=== PATIENT | male | born 1995 | race Two or more races ===

== ENCOUNTER 2020-10-16 18:01 | Emergency (ER) | payer SELFPAY ==
[~2020-10-16] VITALS: Ht 162.6 cm; Wt 63.5 kg
[2020-10-16 18:15] VITALS: BP 122/77
--- NOTE | 2020-10-16 18:15 | NUR ---
ED Nurse Note: Pt walked in to ED c/olaceration on right middle finger. Per pt, he accidentally cut with finger with a tree thinner then fell. Pressure applied with no active bleeding. AAOx4, no SOB. Denies LOC/ KO. ERPA at bedside.
[2020-10-16] MEDS ORDERED: Lidocaine 1% Plain 30 ml INJ ONE (18:30)
--- NOTE | 2020-10-16 18:38 | Diagnostic Imaging Report ---
EXAM: XR Chest, 1 View CLINICAL HISTORY: PAIN TECHNIQUE: Frontal view of the chest. COMPARISON: No relevant prior studies available. FINDINGS: Lungs: No acute cardiopulmonary disease. Pleural space: Unremarkable. No pneumothorax. Heart: Cardiac silhouette is somewhat globoid in appearance, which could be incidental but which could represent possible structural cardiac anomaly. Mediastinum: Unremarkable. Bones/joints: No acute abnormality IMPRESSION: 1. No acute cardiopulmonary disease. 2. Cardiac silhouette is somewhat globoid in appearance, which could be incidental but which could represent possible structural cardiac anomaly. 3. Recommend echocardiogram to further evaluate cardiac chambers.
--- NOTE | 2020-10-16 18:39 | Diagnostic Imaging Report ---
EXAM: XR Right Hand Complete, 3 or More Views CLINICAL HISTORY: PAIN TECHNIQUE: Frontal, lateral and oblique views of the right hand. COMPARISON: No relevant prior studies available. FINDINGS: Bones/joints: Splint and bandage around third middle and distal phalanges. No acute traumatic osseous injury definitively seen. Remaining bones and soft tissues unremarkable. No dislocation. Soft tissues: Extensive third digit soft tissue irregularity likely represents laceration. IMPRESSION: 1. Splint and bandage around third middle and distal phalanges. 2. Extensive third digit soft tissue irregularity likely represents laceration. 3. No acute traumatic osseous injury definitively seen.
[2020-10-16] MEDS ORDERED: Morphine Sulfate 2mg/ml Inj(IV/IM USE ONLY) IVP ONE (18:45)
[2020-10-16] MEDS ORDERED: Piperacillin/Tazobactam 3.375 GM in NS 110 ML IVPB ONE (18:45)
--- NOTE | 2020-10-16 19:10 | NUR ---
HAND-OFF: Report given to Aaliyah ARAGON.
--- NOTE | 2020-10-16 19:11 | NUR ---
ED Nurse Note: pt found laying in bed with eyes open, AAOx4.
--- NOTE | 2020-10-16 19:40 | NUR ---
ED Nurse Note: PA at bedside resassessing wound
[2020-10-16] MEDS ORDERED: Tetanus/Diptheria/Pertussis IM ONE (20:45)
--- NOTE | 2020-10-16 20:47 | Emergency Room Report ---
History of Present Illness General Chief Complaint: Laceration Source: Patient Present Illness HPI 25-year-old male with no no signal past medical history brought in by family due to a laceration to right index finger. Patient was coming down a ladder and missed a step and a branch cut his finger. Denies any head injury. Complains of chest pressure and right hand pain. Patient is a Martiniquais speaking. Reports that he smoked marijuana prior to arrival. Avulsion laceration noted right index finger. Patient has range of motion, and is neurovascularly intact and has full strength of upper extremities. Is not up-to-date with tetanus shot. Denies fever and chills. Allergies: Coded Allergies: No Known Allergies (Unverified , 10/16/20) COVID-19 Screening Contact w/high risk pt: No Experienced COVID-19 symptoms?: No COVID-19 Testing performed WIRE INSULATOR: No Patient History Past Medical History: see triage record Past Surgical History: none Pertinent Family History: none Social History: Reports: drug use - Marijuana Immunizations: other - Tdap today Reviewed Nursing Documentation: PMH: Agreed; PSxH: Agreed Nursing Documentation-PMH Past Medical History: No Stated History Review of Systems All Other Systems: negative except mentioned in HPI Physical Exam Vital Signs Date Time Temp Pulse Resp B/P (MAP) Pulse Ox O2 Delivery O2 Flow Rate FiO2 10/16/20 18:10 97.9 62 16 122/77 (92) 99 Room Air Sp02 EP Interpretation: reviewed, normal General Appearance: no apparent distress, alert, GCS 15, non-toxic Head: normocephalic, atraumatic Eyes: bilateral eye normal inspection, bilateral eye PERRL ENT: hearing grossly normal, normal pharynx, no angioedema, normal voice Neck: full range of motion, supple/symm/no masses Respiratory: chest non-tender, lungs clear, normal breath sounds, speaking full sentences Cardiovascular #1: regular rate, rhythm, no edema Cardiovascular #2: 2+ carotid (R), 2+ carotid (L), 2+ radial (R), 2+ radial (L), 2+ dorsalis pedis (R), 2+ dorsalis pedis (L) Gastrointestinal: normal bowel sounds, non tender, soft, non-distended, no guarding, no rebound Rectal: deferred Musculoskeletal: back normal, other - Patient is neurovascularly intact and has full strength Neurologic: alert, motor strength/tone normal, oriented x3, sensory intact, responsive, speech normal Psychiatric: judgement/insight normal, memory normal, mood/affect normal, no suicidal/homicidal ideation Skin: laceration - Avulsion laceration right index finger, bone is visible however no fracture noted Lymphatic: no adenopathy Procedures Laceration/Wound Repair Laceration/Wound Repair : Consent: Verbal Wound Location: upper extremity - Right index finger Wound's Depth, Shape: superficial Wound Length (cm): 2 Wound Explored: contaminated Betadine Prep?: Yes Wound Repaired With: Dermabond Sterile Dressing Applied?: Yes Splint Applied?: Yes Type of Splint Applied: metal Patient Tolerated: Well Complications: None Medical Decision Making PA Attestation ALL Diagnosis and treatment plan reviewed and discussed with my supervising physician Dr. Choudhary Diagnostic Impression: Primary Impression: Thumb laceration ER Course 25-year-old male with no no signal past medical history brought in by family due to a laceration to right index finger. Patient was coming down a ladder and missed a step and a branch cut his finger. Denies any head injury. Complains of chest pressure and right hand pain. Patient is a Martiniquais speaking. Reports that he smoked marijuana prior to arrival. Avulsion laceration noted right index finger. Patient has range of motion, and is neurovascularly intact and has full strength of upper extremities. Is not up-to-date with tetanus shot. Denies fever and chills. Ddx considered but are not limited to : Superficial laceration, deep laceration, tendon involvement with laceration, laceration with foreign body Vital signs: are WNL, pt. is afebrile H&PE are most consistent with: Thumb avulsion laceration ORDERS: Hand x-ray, chest x-ray, clindamycin, Tylenol 3, ibuprofen ED INTERVENTIONS: Morphine, Zosyn, Dermabond applied, wound cleaned and dressed DISCHARGE: At this time pt. is stable for d/c to home. Will provide printed patient care instructions, and any necessary prescriptions. Care plan and follow up instructions have been discussed with the patient prior to discharge. Couple hand plastic surgeons were contacted however were unable to come, I applied Dermabond was bandaged properly and metal splint applied follow-up with hand specialist. If worsening symptoms return to emergency room. Patient. Chest X-Ray Diagnostic Results Chest X-Ray Diagnostic Results : Chest X-Ray Ordered: Yes # of Views/Limited/Complete: 1 View Indication: Chest Pain EP Interpretation: Yes PA Xray: Interpretation reviewed, by supervising MD, and agrees with findings. Interpretation: no consolidation, no effusion, no pneumothorax, no acute cardiopulmonary disease Impression: No acute disease Electronically Signed by: Laury Ramos PA-C Other X-Ray Diagnostic Results Other X-Ray Diagnostic Results : X-Ray ordered: Right hand # of Views/Limited Vs Complete: 3 View Indication: Pain EP Interpretation: Yes PA Xray: Interpretation reviewed, by supervising MD, and agrees with findings. Interpretation: no dislocation, no soft tissue swelling, no fractures, other - Avulsion laceration right index finger Impression: No acute disease Electronically Signed by: Laury Ramso PA-C Last Vital Signs Date Time Temp Pulse Resp B/P (MAP) Pulse Ox O2 Delivery O2 Flow Rate FiO2 10/16/20 18:15 97.9 16 122/77 99 Room Air 10/16/20 18:10 62 Disposition: HOME, SELF-CARE Condition: Stable Scripts Ibuprofen (Ibu) 800 Mg Tablet 800 MG PO TID, #30 TAB Prov: Laury Neely 10/16/20 Acetaminophen With Codeine (T#3) (TYLENOL #3 TAB*) Y Tab 1 TAB ORAL Q8HR PRN for For Pain for 3 Days, #10 TAB Prov: Laury Neely 10/16/20 Clindamycin Hcl (CLINDAMYCIN HCL) 300 Mg Capsule 300 MG ORAL FOUR TIMES A DAY for 7 Days, #28 CAP Prov: Laury Neely 10/16/20 Referrals: NOT CHOSEN IPA/,REFERRING (PCP) Patient Instructions: Laceration Care, Adult Additional Instructions: Take medication as directed, follow primary care provider and orthopedist, if worsening symptoms return to emergency room Laury Neely Oct 16, 2020 20:47
--- NOTE | 2020-10-16 20:50 | NUR ---
ED Nurse Note: PA at bedside applying dermabond to finger
[2020-10-16] MEDS ORDERED: CLINDAMYCIN HC300 MG ORAL (20:53)
[2020-10-16] MEDS ORDERED: ACETAMINOPHEN-1 EAC1 ORAL (20:53)
[2020-10-16] MEDS ORDERED: IBU800 MG PO (20:53)
--- NOTE | 2020-10-16 21:00 | NUR ---
ED Nurse Note: Per PA order pt's finger wrapped in gauze and finger splint applied. Pt stated dressing is comfortable.
[2020-10-16 21:15] VITALS: BP 136/81
--- NOTE | 2020-10-16 21:15 | NUR ---
ER DISCHARGE NOTE: Patient is cleared to be discharged per ERMD, pt is aox4, on room air, with stable vital signs. pt's dressing applied and finger splint placed. pt was given dc and paper prescription given with instructions to f/u with PMD and orthopedic within 1 week. pt was able to verbalize understanding, pt id band and iv site removed without complications. pt is able to ambulate with steady gait. pt took all belongings.
== END 2020-10-16 21:15 | disposition home or self-care (01) ==
LOC: EMR 19:09
DX: S61.210A Laceration without foreign body of right index finger without damage to nail, initial encounter (principal); F12.90 Cannabis use, unspecified, uncomplicated; W22.8XXA Striking against or struck by other objects, initial encounter; Y93.89 Activity, other specified; Y92.9 Unspecified place or not applicable
CPT/HCPCS: 12001; 71045; 73130; 90471; 90715; 96365; 96375; 99284; J2001; J2270; J2543